=== PATIENT | female | born 1965 | race Caucasian/White ===

== ENCOUNTER 2022-12-14 16:21 | Outpatient (REF) | payer BC, SELFPAY ==
--- NOTE | 2022-12-14 16:00 | GINGIVA_PTH ---
PATIENT: Marlen Benjamin LOC: [facility] U#:[id number] AGE/SX: 57/F ROOM: RE12/14/[address]: Trey Jasmine MD : 1965 BED: DIS: 12/14/2022 SPEC #: [id number] RECD: 12/15/22 12:42 STATUS: ROGELIO REQ #: [id number] NORBERTO: 12/14/22 16:[address]: Trey Jasmine DEPT: Surgical Specimen RECD BY: Lavonne Stubbs ENTERED: 12/15/22 12:43 SP TYPE: Gingiva OTHR DR: Shadia Goldberg DO Tissues: 1 - MUCOSA, NOS Procedures: GROSS AND MICRO LEVEL 4 Comments: [id number]
== END 2022-12-14 16:22 | disposition home or self-care (01) ==
LOC: LBN 16:21
PROVIDERS: PCP Student in an Organized Health Care Education/Training Program; Visit Provider Otolaryngology
DX: K13.21 Leukoplakia of oral mucosa, including tongue (principal)
CPT/HCPCS: 88305

== ENCOUNTER 2023-01-12 02:01 | Outpatient (CLI) | payer BC, SELFPAY ==
--- NOTE | 2023-01-12 08:00 | DI.RAD_ITS ---
Exam(s) XR LUMBAR SPINE COMPLETE XR SACROILIAC JOINTS XR HIP PELVIS ADULT BL EXAM: XR LUMBAR SPINE COMPLETE CLINICAL HISTORY: BACK PAIN, BACK SPRAIN,ARTHROPATHY,M47.816,R29.898,ASYMMETRY HIPS. TECHNIQUE: 2D digital imaging was performed. Five views of the spine. Three views of the pelvis an d bilateral hips and three views of the SI joints.. COMPARISON: CR XR SACROILIAC JOINTS from 01/12/2023 CR XR HIP PELVIS ADULT BL from 01/12/2023 FINDINGS: Vertebral body heights are maintained. There are small endplate osteophytes. There is moderate narr owing of the L4-5 disc space. There facet degenerative changes at this level causing mild spondyloli sthesis. No spondylolysis. No scoliosis. The SI joints and pubic symphysis are unremarkable. The hip joint spaces are maintained. No significant degenerative changes at the hips. IMPRESSION: Degenerative disc changes and facet degenerative changes with mild spondylolisthesis at L4-5. SI fern nts and hip joints are unremarkable. DATA REPOSITORY: RADIATION DOSE DELIVERED:
== END 2023-01-12 02:21 ==
LOC: DI 02:01
PROVIDERS: PCP Student in an Organized Health Care Education/Training Program; Visit Provider Student in an Organized Health Care Education/Training Program
DX: M47.816 Spondylosis without myelopathy or radiculopathy, lumbar region (principal); M43.16 Spondylolisthesis, lumbar region; M51.36 Other intervertebral disc degeneration, lumbar region; M25.551 Pain in right hip; M25.552 Pain in left hip; R29.898 Other symptoms and signs involving the musculoskeletal system; M25.561 Pain in right knee; M79.671 Pain in right foot; M79.672 Pain in left foot
CPT/HCPCS: 73521; 72110; 72202

== ENCOUNTER 2023-01-12 16:34 | Outpatient (REF) | payer BC, SELFPAY ==
--- NOTE | 2023-01-12 16:00 | GINGIVA_PTH ---
PATIENT: Marlen Benjamin LOC: [facility] U#:[id number] AGE/SX: 57/F ROOM: RE01/12/[address]: Trey Jasmine MD : 1965 BED: DIS: 01/12/2023 SPEC #: [id number] RECD: 01/13/23 12:47 STATUS: ROGELIO REQ #: [id number] NORBERTO: 01/12/23 16:[address]: Trey Jasmine DEPT: Surgical Specimen RECD BY: Lavonne Stubbs ENTERED: 01/13/23 12:48 SP TYPE: Gingiva OTHR DR: Shadia Goldberg DO Tissues: 1 - MUCOSA, NOS Procedures: GROSS AND MICRO LEVEL 4 Comments: [id number]
== END 2023-01-12 16:35 | disposition home or self-care (01) ==
LOC: LBN 16:34
PROVIDERS: PCP Student in an Organized Health Care Education/Training Program; Visit Provider Otolaryngology
DX: K13.21 Leukoplakia of oral mucosa, including tongue (principal); K13.5 Oral submucous fibrosis; K13.29 Other disturbances of oral epithelium, including tongue
CPT/HCPCS: 88305